=== PATIENT | female | born 1965 | race Caucasian/White ===

== ENCOUNTER 2018-08-15 06:38 | Day surgery (SDC) | payer OTHER ==
[2018-08-15] MEDS ORDERED: PROPOFOL 40 ML (08:38)
[2018-08-15] MEDS ORDERED: PROPOFOL 20 ML (09:24)
== END 2018-08-15 10:19 | disposition home or self-care (01) ==
LOC: GIL 06:38
DX: R19.4 Change in bowel habit (principal); D12.5 Benign neoplasm of sigmoid colon; D12.8 Benign neoplasm of rectum; K21.9 Gastro-esophageal reflux disease without esophagitis; K29.60 Other gastritis without bleeding; K64.8 Other hemorrhoids
CPT/HCPCS: 43239; 88305; 88312

== ENCOUNTER 2018-10-11 06:21 | Day surgery (SDC) | payer OTHER ==
[2018-10-11] MEDS ORDERED: SEVOFLURANE 15 MIN (07:00)
[2018-10-11] MEDS ORDERED: CLINDAMYCIN 900 MG/D5W (PMX) 50 ML IVPB (07:00)
[2018-10-11] MEDS ORDERED: PROPOFOL 200 MG INJ (07:00)
[2018-10-11] MEDS: LACTATED RINGER'S 1,000 ML IV (07:23)
[2018-10-11] MEDS ORDERED: BACITRACIN/POLYMYXIN 28.35 GM OINT TOP (08:35)
[2018-10-11] MEDS ORDERED: PROPOFOL 40 ML (09:00)
[2018-10-11] MEDS ORDERED: ROCURONIUM 50 MG INJ (09:00)
[2018-10-11] MEDS ORDERED: DEXAMETHASONE 4 MG/ML 5 ML INJ (09:00)
[2018-10-11] MEDS ORDERED: LIDOCAINE 2% (SDV) 5 ML INJ (09:00)
[2018-10-11] MEDS ORDERED: CEFAZOLIN 1 GM INJ (09:00)
[2018-10-11] MEDS ORDERED: ONDANSETRON 4 MG INJ ×2 (09:01→09:50)
[2018-10-11] MEDS: BUPIVACAINE 0.5% (SDV) 30 ML INJ (09:11)
[2018-10-11] MEDS ORDERED: KETOROLAC 30 MG INJ (09:38)
[2018-10-11] MEDS ORDERED: LABETALOL HCL 20MG INJ IV (10:00)
[2018-10-11] MEDS ORDERED: DIPHENHYDRAMINE 50 MG INJ IV (10:00)
[2018-10-11] MEDS ORDERED: METOCLOPRAMIDE 10 MG INJ IV (10:00)
[2018-10-11] MEDS: ONDANSETRON 4 MG INJ IV (10:00)
[2018-10-11] MEDS ORDERED: KETOROLAC 30 MG INJ IV (10:00)
[2018-10-11] MEDS ORDERED: MEPERIDINE 25 MG INJ IV (10:00)
[2018-10-11] MEDS ORDERED: ALBUTEROL 0.083% (NEB) 2.5 MG/3 ML AMP HHN (10:00)
[2018-10-11] MEDS ORDERED: OXYCODONE/ACETAMINOPHEN (5/325) TAB PO ×2 (10:00)
[2018-10-11] MEDS ORDERED: EPHEDrine 25 MG/5 ML SYG IV (10:00)
[2018-10-11] MEDS ORDERED: hydrALAzine 20 MG INJ IV (10:00)
[2018-10-11] MEDS: FENTAnyl 50 MCG/ML VIAL IV ×3 (10:09→10:41)
== END 2018-10-11 13:27 | disposition home or self-care (01) ==
LOC: SDS 06:21
DX: M65.832 Other synovitis and tenosynovitis, left forearm (principal); M65.352 Trigger finger, left little finger; Z88.0 Allergy status to penicillin
CPT/HCPCS: 26055; 84703